=== PATIENT | female | born 1960 | race African-American/Black ===

== ENCOUNTER → 2017-04-06 | Outpatient (CLI) | payer OTHER ==
--- NOTE | 2017-04-07 13:07 | MAMMOGRAPHY REPORT ---
BILATERAL DIGITAL SCREENING MAMMOGRAM TOMOSYNTHESIS WITH CAD: 04/06/2017 CLINICAL HISTORY: Routine screening. Patient has no complaints. TECHNIQUE: Breast tomosynthesis in addition to standard 2D mammography was performed. Current study was also evaluated with a Computer Aided Detection (CAD) system. COMPARISON: Comparison is made to exams dated: 04/04/2016 mammogram, 03/28/2016 mammogram, 03/27/2015 [facility], 03/30/2009, 02/03/2008, and 03/22/2007. BREAST COMPOSITION: The tissue of both breasts is heterogeneously dense, which may obscure small mas ses. FINDINGS: There are scattered benign rim calcifications in the breasts. The parenchymal pattern is s imilar to prior mammograms. No new suspicious mass, architectural distortion or cluster of microcalc ifications is seen. IMPRESSION: ACR BI-RADS CATEGORY 1: NEGATIVE There is no mammographic evidence of malignancy. A 1 year screening mammogram is recommended. The pa tient will receive written notification of the results. Approximately 10% of breast cancers are not detected with mammography. A negative mammographic report should not delay biopsy if a clinically suggestive mass is present. Jaycee De Oliveira M.D. ay/:04/07/2017 12:42:41 Associate Principal: Cassie SAL(Everardo)(Lucien)(BD), [facility] letter sent: Normal 1/2 BI-RADS Code: ACR BI-RADS Category 1: Negative
== END | disposition home or self-care (01) ==
LOC: C.MAMM 13:51
PROVIDERS: ATTEND Obstetrics & Gynecology
DX: Z12.31 Encounter for screening mammogram for malignant neoplasm of breast (principal)

== ENCOUNTER → 2017-04-16 | Outpatient (CLI) | payer OTHER ==
[2017-04-16 17:01] LABS: BLOOD UREA NITROGEN 10 mg/dl (7-18); BUN/CREATININE RATIO 11.4 (10-20); CALCIUM 9.4 mg/dl (8.5-10.1); CARBON DIOXIDE 29 mmol/L (21-32); CHLORIDE 111 mmol/L (98-107); CREATININE 0.91 mg/dl (0.60-1.20); GLUCOSE 84 mg/dl (70-99); SODIUM 143 mmol/L (136-145)
[2017-04-16 17:12] LABS: C-REACTIVE PROTEIN < 0.29 mg/dl (0-0.29); CHOLESTEROL 220 mg/dl (0-200); CHOLESTEROL/HDL RATIO 4.2; HDL CHOLESTEROL 52 mg/dl; LDL CHOLESTEROL CALCULATED 152 mg/dl; RHEUMATOID FACTOR < 10.0 U/mL (0-15); TRIGLYCERIDES 81 mg/dl (0-150); VERY LOW DENSITY LIPOPROT CALC 16 mg/dl
== END | disposition home or self-care (01) ==
LOC: C.LAB1850 14:45
PROVIDERS: ATTEND Internal Medicine
DX: Z11.59 Encounter for screening for other viral diseases (principal); R52 Pain, unspecified; E55.9 Vitamin D deficiency, unspecified; Z13.220 Encounter for screening for lipoid disorders; Z13.1 Encounter for screening for diabetes mellitus

== ENCOUNTER → 2017-04-21 | Outpatient (CLI) | payer OTHER ==
--- NOTE | 2017-04-21 08:40 | DIAGNOSTIC IMAGING REPORT ---
(BARIUM SWALLOW) ESOPHAGUS CLINICAL HISTORY: R07.0 Throat [id number] sensation COMPARISON STUDY: None FLUOROSCOPY TIME: 1.4 minutes. NUMBER OF FLUOROSCOPIC IMAGES: 24 FINDINGS: The patient swallowed effervescent granules and barium without difficulty. Rapid sequence swallows in the AP and lateral projections were unremarkable, with the exception of a prominent cricopharyngeus impression. No esophageal masses or ulcerations were visualized. The patient swallowed one half inch barium tablet which freely passed the stomach. IMPRESSION: No significant abnormalities. Electronically signed by: Amilcar Salguero M.D. 04/21/2017 8:39 AM Dictated Date/Time: 04/21/2017 8:37 AM
--- NOTE | 2017-04-21 09:11 | DIAGNOSTIC IMAGING REPORT ---
SOFT TIS HEAD/NECK-THYROID HISTORY: Dysphagia R07.0 Throat [id number] COMPARISON: None. FINDINGS: Right lobe: 4.0 cm maximum dimension. Uniform echogenicity. No nodularity. Left lobe: 4 cm maximum dimension. Uniform echogenicity. Small 4 mm low suspicion lower pole nodule Isthmus: No nodules. IMPRESSION: Small 4 mm lower pole nodule on the left. Routine ultrasonic follow-up is recommended at a 6-12 month time interval. Otherwise normal exam The above report was generated using voice recognition software. It may contain grammatical, syntax or spelling errors. Electronically signed by: Ari Bob M.D. 04/21/2017 9:09 AM Dictated Date/Time: 04/21/2017 9:08 AM
== END | disposition home or self-care (01) ==
LOC: C.RAD 07:58
PROVIDERS: ATTEND Internal Medicine
DX: R07.0 Pain in throat (principal)

== ENCOUNTER → 2017-06-15 | Outpatient (CLI) | payer OTHER ==
--- NOTE | 2017-06-15 15:59 | DIAGNOSTIC IMAGING REPORT ---
CERVICAL WITHOUT CONTRAST HISTORY: Radiculopathy. CERVICAL RADICULOPATHY; CERVICOGENIC VIRGEN TECHNIQUE: Multiplanar multisequence MRI of the cervical spine was performed without the use of contrast. COMPARISON STUDY: None. FINDINGS: Mild degenerative disc changes throughout. Normal signal characteristics the cervical cord. No evidence for bone marrow replacing process. C2-C3: No significant central canal or neural foraminal narrowing. C3-C4: Minimal disc bulge. No contact with cervical cord. C4-C5: No significant central canal or neural foraminal narrowing. C5-C6: Left central bulging disc. This may be in contact with the cervical cord but shows no deformity or displacement of that structure. C6-C7: Mild central bulging disc. No significant impact with cervical cord. C7-T1: Minimal disc bulge. No impact with any neural element. IMPRESSION: 1. Mild degenerative disc change throughout the entire cervical region. 2. Minimal/mild disc bulges C3-C4, C5-C6, and C6-C7. 3. Minimal disc bulge C7-T1. 4. No significant compromise of the cervical spinal canal The above report was generated using voice recognition software. It may contain grammatical, syntax or spelling errors. Electronically signed by: Ari Bob M.D. 06/15/2017 3:58 PM Dictated Date/Time: 06/15/2017 3:55 PM
== END | disposition home or self-care (01) ==
LOC: C.MRIBC 14:59
PROVIDERS: ATTEND Psychiatry & Neurology Neurology
DX: M54.12 Radiculopathy, cervical region (principal); R51 Headache

== ENCOUNTER 2017-10-27 08:09 | Emergency (ER) | payer OTHER ==
[~2017-10-27] VITALS: Ht 152.4 cm; Wt 77.0 kg
[2017-10-27 08:12] VITALS: TEMP 36.4; Ht 152.4 cm; Wt 77.0 kg
[2017-10-27] MEDS ORDERED: ONDANSETRON INJ 2 MG/ML 2 ML VIAL IV STA (08:44)
[2017-10-27] MEDS ORDERED: MoRPHine SULFATE 10 MG/ML CARP/VIAL IV STA (08:44)
[2017-10-27 08:52] LABS: HEMATOCRIT 39.9 % (37-47); HEMOGLOBIN 13.1 g/dL (12.0-16.0); MEAN CELL VOLUME 85.1 fL (80-100); MEAN CORPUSCULAR HEMOGLOBIN 27.9 pg (25-34); MEAN CORPUSCULAR HGB CONC 32.8 g/dl (32-36); MEAN PLATELET VOLUME 10.4 fL (7.4-10.4); PLATELET COUNT 198 K/uL (130-400); RED CELL DISTRIBUTION WIDTH CV 12.7 % (11.5-14.5); RED CELL DISTRIBUTION WIDTH SD 38.8 fL (36.4-46.3); WHITE BLOOD COUNT 4.55 K/uL (4.8-10.8)
[2017-10-27 09:02] LABS: PTT PATIENT 25.4 SECONDS (21.0-31.0)
[2017-10-27 09:10] LABS: ALBUMIN 4.3 gm/dl (3.4-5.0); ALT/SGPT 20 U/L (12-78); AST/SGOT 12 U/L (15-37); BLOOD UREA NITROGEN 9 mg/dl (7-18); CALCIUM 9.2 mg/dl (8.5-10.1); CARBON DIOXIDE 25 mmol/L (21-32); CREATININE 0.85 mg/dl (0.60-1.20); GLUCOSE 95 mg/dl (70-99); LIPASE 195 U/L (73-393); POTASSIUM 3.7 mmol/L (3.5-5.1); SODIUM 140 mmol/L (136-145)
[2017-10-27 09:15] LABS: ALKALINE PHOSPHATASE 65 U/L (45-117); CKMB < 0.5 ng/ml (0.5-3.6); TOTAL PROTEIN 8.5 gm/dl (6.4-8.2)
--- NOTE | 2017-10-27 09:16 | DIAGNOSTIC IMAGING REPORT ---
CHEST 2 VIEWS ROUTINE CLINICAL HISTORY: 57 years-old Female presenting with chest pain radiating to the back of the chest, difficulty breathing. TECHNIQUE: PA and lateral views of the chest were obtained. COMPARISON: None. FINDINGS: Atherosclerosis of the aortic arch. Cardiac silhouette normal in size. Lungs and pleural spaces clear. Osseous structures normal. Upper abdomen normal. IMPRESSION: 1. No acute cardiopulmonary disease. Electronically signed by: Kishro Bee M.D. 10/27/2017 9:15 AM Dictated Date/Time: 10/27/2017 9:14 AM
[2017-10-27] MEDS ORDERED: KETOROLAC TROMETHAMINE 30 MG/ML VIAL IV STA (09:37)
[2017-10-27] MEDS ORDERED: TRAM-10 PO (11:52)
--- NOTE | 2017-10-27 11:52 | EMERGENCY ROOM VISIT NOTE ---
History First contact with patient: 08:14 Chief Complaint: RESPIRATORY PROBLEMS Stated Complaint: PAIN FROM BACK TO CHEST CANT BREATHE History of Present Illness The patient is a 57 year old female who presents to the Emergency Room with complaints of upper left-sided back pain. The patient states that it started yesterday in the left upper back and now it is radiating straight through to the front of her chest. The patient denies any trauma or any recent URI symptoms. The patient denies any shortness of breath but states it hurts to take in a deep breath. The patient denies any jaw or arm pain. The patient denies any history of any cardiac disorders. The patient denies tobacco use or any recent hormones or any recent travel. The patient denies any history of clots. The patient denies any associated nausea or vomiting. Review of Systems 10 system review was performed and was negative unless stated otherwise history of present illness. Social History Alcohol Use: none Drug Use: none Marital Status: Housing Status: lives with family Occupation Status: unemployed Current/Historical Medications No Active Prescriptions or Reported Meds Physical Exam Vital Signs Date Time Temp Pulse Resp B/P (MAP) Pulse Ox O2 Delivery O2 Flow Rate FiO2 10/27/17 11:37 Room Air 10/27/17 10:25 56 12 194/81 98 Room Air 10/27/17 08:59 60 18 150/90 99 Room Air 10/27/17 08:31 60 10/27/17 08:23 Room Air 10/27/17 08:12 36.4 62 22 179/86 96 Room Air Physical Exam GENERAL: 57-year-old female appears uncomfortable secondary to pain. MENTAL Status: Alert and oriented 3. MOUTH: Mucosa is moist NECK: Supple, no lymphadenopathy noted. No carotid bruits noted. LUNGS: Clear auscultation without wheezes rales or rhonchi. CARDIAC: Regular rate and rhythm without murmur. Pulses is full and equal throughout. CHEST WALL: The patient has tenderness palpation over the left upper posterior chest wall. Remainder chest wall is nontender. ABDOMEN: Positive bowel sounds all 4 quadrants. Soft, nontender to palpation without organomegaly or masses. EXTREMITIES: No cyanosis or edema noted. Medical Decision & Procedures ER Provider Diagnostic Interpretation: CHEST 2 VIEWS ROUTINE CLINICAL HISTORY: 57 years-old Female presenting with chest pain radiating to the back of the chest, difficulty breathing. TECHNIQUE: PA and lateral views of the chest were obtained. COMPARISON: None. FINDINGS: Atherosclerosis of the aortic arch. Cardiac silhouette normal in size. Lungs and pleural spaces clear. Osseous structures normal. Upper abdomen normal. IMPRESSION: 1. No acute cardiopulmonary disease. Electronically signed by: Kishor Bee M.D. 10/27/2017 9:15 AM Laboratory Results 10/27/17 08:37 Red Blood Count 4.69, Mean Corpuscular Volume 85.1, Mean Corpuscular Hemoglobin 27.9, Mean Corpuscular Hemoglobin Concent 32.8, Mean Platelet Volume 10.4 10/27/17 08:37 Test 10/27/17 08:37 10/27/17 08:39 10/27/17 10:41 White Blood Count 4.55 K/uL (4.8-10.8) Red Blood Count 4.69 M/uL (4.2-5.4) Hemoglobin 13.1 g/dL (12.0-16.0) Hematocrit 39.9 % (37-47) Mean Corpuscular Volume 85.1 fL (80-100) Mean Corpuscular Hemoglobin 27.9 pg (25-34) Mean Corpuscular Hemoglobin Concent 32.8 g/dl (32-36) Platelet Count 198 K/uL (130-400) Mean Platelet Volume 10.4 fL (7.4-10.4) RDW Standard Deviation 38.8 fL (36.4-46.3) RDW Coefficient of Variation 12.7 % (11.5-14.5) Neutrophils % (Manual) 20.4 % Lymphocytes % (Manual) 50.3 % Variant Lymphocytes % (manual) 23.9 % Monocytes % (Manual) 2.7 % Eosinophils % (Manual) 1.8 % Basophils % (Manual) 0.9 % Neutrophils # (Manual) 0.93 K/uL (1.4-6.5) Total Absolute Neutrophils 0.93 K/uL (1.4-6.5) Lymphocytes # (Manual) 2.29 K/uL (1.2-3.4) Absolute Variant Lymphocytes 1.09 K/uL Total Absolute Lymphocytes 3.38 K/uL (1.2-3.4) Monocytes # (Manual) 0.12 K/uL (0.11-0.59) Eosinophils # (Manual) 0.08 K/uL (0-0.5) Basophils # (Manual) 0.04 K/uL (0-0.2) Smudge Cells PRESENT Giant Platelets 2+ Prothrombin Time 10.7 SECONDS (9.0-12.0) Prothromb Time International Ratio 1.0 (0.9-1.1) Activated Partial Thromboplast Time 25.4 SECONDS (21.0-31.0) Partial Thromboplastin Ratio 1.0 Anion Gap 7.0 mmol/L (3-11) Est Creatinine Clear Calc Drug Dose 65.4 ml/min Estimated GFR () 86.9 Estimated GFR (Non- 75.0 BUN/Creatinine Ratio 10.3 (10-20) Calcium Level 9.2 mg/dl (8.5-10.1) Total Bilirubin 0.3 mg/dl (0.2-1) Direct Bilirubin < 0.1 mg/dl (0-0.2) Aspartate Amino Transf (AST/SGOT) 12 U/L (15-37) Alanine Aminotransferase (ALT/SGPT) 20 U/L (12-78) Alkaline Phosphatase 65 U/L (45-117) Total Creatine Kinase 77 U/L (26-192) Creatine Kinase MB < 0.5 ng/ml (0.5-3.6) Creatine Kinase MB Ratio (0-3.0) Total Protein 8.5 gm/dl (6.4-8.2) Albumin 4.3 gm/dl (3.4-5.0) Lipase 195 U/L (73-393) Bedside D-Dimer 110 ng/mlFEU (0-450) Bedside Troponin I < 0.030 ng/ml (0-0.045) Medications Administered Medications (Trade) Dose Ordered Sig/Curtis Route Start Time Stop Time Status Last Admin Dose Admin Ketorolac Tromethamine (Toradol Inj) 30 mg NOW STAT IV 10/27/17 09:37 10/27/17 09:38 DC 10/27/17 10:26 30 MG ECG Indication: chest pain Rhythm: normal sinus Findings: no acute ischemic change ED Course The patient was evaluated. The patient was placed on a monitor and continuous pulse ox. IV access was obtained. EKG was obtained and interpreted by myself as above without any acute findings. CBC and differential, renal profile, LFTs and lipase levels were ordered. Coags, CK-MB, tszjf-hy-hjyj d-dimer and troponin were ordered. Labs are reviewed and a low WBC and ANC. I reviewed the patient's prior labs in EMR and she had a CBC without a differential in 2015 which showed a low WBC. Point of care d-dimer and troponin were within normal limits. Chest x-ray was ordered interpreted by the radiologist and myself as above without any acute findings. The patient was initially offered morphine for pain but she declined. Second mstqm-si-[id number] troponin was negative. The patient was informed of the findings. The correctional counselor/case manager set up an appointment with her family doctor for Thursday for recheck and referral to hematology for further evaluation. The patient was in agreement with treatment plan. The patient was discharged home in stable condition. Medical Decision Differential diagnosis include pneumonia, pleuritic chest pain, muscular strain , costochondritis, PE, [place] Drug Monitoring Program Search Results: patient reviewed within database Medication Reconcilliation Current Medication List: was personally reviewed by me Blood Pressure Screening Patient's blood pressure: Elevated blood pressure Blood pressure disposition: Elevated BP felt to be situational Impression Primary Impression: Chest wall pain Additional Impression: Neutropenia Departure Information Dispostion Home / Self-Care Condition GOOD Prescriptions Tramadol (Ultram) 50 Mg Tab 1-2 TAB PO TID Y for Pain for 5 Days, #30 TAB Prov: Val Bob PA-C 10/27/17 Referrals RV. Caceres MD (PCP) Forms HOME CARE DOCUMENTATION FORM, IMPORTANT VISIT INFORMATION, WORK / SCHOOL INSTRUCTIONS Patient Instructions My [employer] Additional Instructions Ibuprofen 600 mg every 6 hours with food for pain. Take Ultram as needed for more severe pain. Do not drive while taking the Ultram. Keep scheduled appointment with your PCP for follow-up recheck on Thursday as well as follow-up for your low white count. If use various any severe uncontrolled chest pain, diaphoresis, shortness of breath return to ER immediately. Problem Qualifiers Additional Impression: Neutropenia Neutropenia type: unspecified Qualified Codes: D70.9 - Neutropenia, unspecified
[2017-10-27 12:11] VITALS: BP 151/86; PULSE 55; O2SAT 96
== END 2017-10-27 12:11 | disposition home or self-care (01) ==
LOC: C.EDB 08:12
DX: R07.89 Other chest pain (principal); D70.9 Neutropenia, unspecified; R03.0 Elevated blood-pressure reading, without diagnosis of hypertension

== ENCOUNTER → 2018-04-13 | Outpatient (CLI) | payer OTHER ==
--- NOTE | 2018-04-15 07:55 | MAMMOGRAPHY REPORT ---
BILATERAL DIGITAL SCREENING MAMMOGRAM TOMOSYNTHESIS WITH CAD: 04/13/2018 CLINICAL HISTORY: Routine screening. Patient has no complaints. TECHNIQUE: The study was acquired using full field digital technology and interpreted from soft copy. Breast tomosynthesis in addition to standard 2D mammography was performed. Current study was also ev aluated with a Computer Aided Detection (CAD) system. COMPARISON: Comparison is made to exams dated: 04/06/2017 mammogram, 04/04/2016 mammogram, 03/28/2016 [facility], 03/27/2015 mammogram, 04/04/2016 ultrasound - [facility], and 03/30/2009. BREAST COMPOSITION: The tissue of both breasts is heterogeneously dense, which may obscure small mass es. FINDINGS: The glandular pattern is similar to prior mammograms. There are scattered benign-appearing punctate and rim calcifications. No new suspicious mass, architectural distortion or cluster of micr ocalcifications is seen. IMPRESSION: ACR BI-RADS CATEGORY 1: NEGATIVE There is no mammographic evidence of malignancy. A 1 year screening mammogram is recommended.( 019) The patient will receive written notification of the results. Some breast cancers are not detected with mammography. A negative mammographic report should not sparkle y biopsy if a clinically suggestive mass is present. Jaycee De Oliveira M.D. ay/:04/13/2018 21:27:44 Porcelain Finisher: RT Karlee(Everardo)(M), [facility] letter sent: Normal 1/2 BI-RADS Code: ACR BI-RADS Category 1: Negative
== END | disposition home or self-care (01) ==
LOC: C.MAMM 11:02
PROVIDERS: ATTEND Obstetrics & Gynecology
DX: Z12.31 Encounter for screening mammogram for malignant neoplasm of breast (principal)

== ENCOUNTER → 2018-05-05 | Outpatient (CLI) | payer OTHER | END | disposition home or self-care (01) | LOC: C.PAPS 16:07 | PROVIDERS: ATTEND Obstetrics & Gynecology | DX: Z01.411 Encounter for gynecological examination (general) (routine) with abnormal findings (principal) ==

== ENCOUNTER → 2018-05-06 | Outpatient (CLI) | payer OTHER ==
--- NOTE | 2018-05-06 14:16 | DIAGNOSTIC IMAGING REPORT ---
SOFT TISS HEAD/NECK-THYROID CLINICAL HISTORY: 58 years-old Female presenting with THYROID NODULE. TECHNIQUE: Real-time grayscale and color Doppler ultrasound imaging of the thyroid and base of the neck was performed. COMPARISON: 04/21/2017. FINDINGS: Right lobe: Normal echogenicity and echotexture. The right lobe of the thyroid measures 4.3 x 1.3 x 1.4 cm. No parenchymal hyperemia. No nodules. Left lobe: Normal echogenicity and echotexture. The left lobe of the thyroid measures 4.0 x 1.4 x 1.6 cm. No parenchymal hyperemia. Index nodule(s) enumerated below: 1. 0.7 x 0.4 x 0.7 cm lower pole solid isoechoic lgsit-bqwe-gsvd nodule with smooth margins. No echogenic foci to suggest calcifications. TI-RADS 3: Mildly suspicious. This previously measured 0.4 x 0.4 x 0.4 cm. Isthmus: The isthmus measures 6 mm in thickness. No parenchymal hyperemia. No nodules. Reference: TI-RADS 1: No biopsy. TI-RADS 2: No biopsy. TI-RADS 3: FNA if > or = to 2.5 cm; follow if > or = to 1.5 cm. TI-RADS 4: FNA if > or = to 1.5 cm; follow if > or = to 1 cm. TI-RADS 5: FNA if > or = to 1 cm; follow if > or = to 0.5 cm. Tabatha ENNIS, Juventino WD, Cory KAMARA. Thyroid Imaging Reporting and Data System (TI-RADS): A User's Guide. Radiology. 2018;287:29-36. Cory E, Tabatha ENNIS, Aman SILVA, et al. Thyroid Ultrasound Reporting Lexicon: White Paper of the ACR Thyroid Imaging, Reporting and Data System (TIRADS) Committee. J Am Miguel Angel Radiol. 2015;[id number]. IMPRESSION: 1. Slight interval growth of the mildly suspicious subcentimeter left lower pole nodule (TI-RADS 3). This does not require follow-up per TI-RADS criteria. Electronically signed by: Kishor Bee M.D. 05/06/2018 2:15 PM Dictated Date/Time: 05/06/2018 2:11 PM
== END | disposition home or self-care (01) ==
LOC: C.ULTR 13:40
PROVIDERS: ATTEND Internal Medicine
DX: E04.1 Nontoxic single thyroid nodule (principal)